=== PATIENT | female | born 1945 | race American Indian/Alaskan Native ===

== ENCOUNTER 2021-12-31 06:51 | Day surgery (SDC) | payer MEDICARE ==
[2021-12-31] MEDS ORDERED: SODIUM CHLORIDE 0.9% 500 ML 500 ML IV SCH (08:00)
[2021-12-31 08:27] LABS: Blood Urea Nitrogen 13 mg/dL (7-17)
[2021-12-31 08:34] LABS: Basophils % (Auto) 0.7 % (0.0-1.8); Hematocrit 39.8 % (30.3-42.9); Hemoglobin 13.5 gm/dl (10.1-14.3); INR 0.88 (0.87-1.13); Lymphocytes # (Auto) 1.1 K/mm3 (1.2-5.4); Mean Corpuscular HGB Conc 34 % (30-34); Mean Corpuscular Volume 92 fl (79-97); Monocytes # (Auto) 0.5 K/mm3 (0.0-0.8); Monocytes % (Auto) 12.3 % (0.0-7.3); Platelet Count 226 K/mm3 (140-440); Red Blood Count 4.31 M/mm3 (3.65-5.03); Red Cell Distribution Width 12.2 % (13.2-15.2)
[2021-12-31 08:41] LABS: Hemolysis Index 92
[2021-12-31] MEDS ORDERED: methylPREDNISolone Sod Succinate 125 MG/2 ML INJ IV NR (08:41)
[2021-12-31 08:42] LABS: BUN/Creatinine Ratio 19
[2021-12-31] MEDS ORDERED: FAMOTIDINE 20 MG/2 ML INJ IV ONE (08:43)
[2021-12-31] MEDS ORDERED: HEPARIN/NS 5000 UNIT/500ML 1,000 ML IR ONE (08:49)
[2021-12-31] MEDS ORDERED: HEPARIN 10,000 UNITS/10 ML VIAL ONE (08:50)
[2021-12-31] MEDS ORDERED: VERAPAMIL 5 MG/2 ML INJ ONE (08:50)
[2021-12-31] MEDS ORDERED: NITROGLYCERIN SYRINGE 3 ML ONE (08:50)
[2021-12-31] MEDS ORDERED: LIDOCAINE (2%) 20 MG/1 ML VIAL 20 ML MDV INFILTRATI ONE (08:50)
[2021-12-31] MEDS ORDERED: fentaNYL 100 MCG/2 ML INJ ONE (08:51)
[2021-12-31] MEDS ORDERED: MIDAZOLAM 2 MG/2 ML INJ ONE (08:51)
[2021-12-31] MEDS ORDERED: diphenhydrAMINE 50 MG/ML VIAL IV NR (09:00)
--- NOTE | 2021-12-31 09:04 | Electrocardiograph Report ---
[facility] Test Date: 2021-12-31 Test Time: 07:32:01 Pat Name: EVELYN CABALLERO Department: Room: Gender: F Performance Improvement Manager: GEOVANI : 1945 Requested By: HOMER MARIE Order Number: [id number] Reading MD: Homer Marie Measurements Intervals [place] Rate: 54 P: 30 TX: 277 QRS: -9 QRSD: 110 T: 101 QT: 383 QTc: 363 Interpretive Statements Sinus rhythm Prolonged TX interval LVH with secondary repolarization abnormality No previous ECG available for comparison Electronically Signed On 12-31-2021 9:04:43 EST by Homer Marie
--- NOTE | 2021-12-31 12:23 | Short Stay Summary ---
Short Stay Documentation Date of service: 12/31/21 - History H&P: obtained from office - Allergies and Medications Current Medications: Allergies aspirin Allergy (Verified 12/31/21 07:15) Unknown Palpitations contact metal agent Allergy (Verified 12/31/21 08:20) Vomiting Home Medications Medication Instructions Recorded Confirmed Last Taken Type Doxazosin Mesylate [Cardura Xl] 8 mg PO DAILY 12/31/21 12/31/21 12/30/21 History 1 TAB Eszopiclone [Lunesta] 1 mg PO QHS PRN 12/31/21 12/31/21 12/30/21 History 1 TAB Felodipine [Plendil] 10 mg PO DAILY 12/31/21 12/31/21 12/30/21 History 1 TAB Levothyroxine [Synthroid] 88 mcg PO QAM 12/31/21 12/31/21 12/30/21 History 1 TAB Magnesium Oxide [Magnesium] 400 mg PO DAILY 12/31/21 12/31/21 12/30/21 History 1 TAB Primidone [Mysoline] 250 mg PO QHS 12/31/21 12/31/21 12/30/21 History 1 TAB Valsartan [Diovan] 160 mg PO BID 12/31/21 12/31/21 12/30/21 History 2 TABS carvediloL [Coreg] 6.25 mg PO BID 12/31/21 12/31/21 12/30/21 History 2 TABS hydroCHLOROthiazide [HCTZ] 25 mg PO QDAY 12/31/21 12/31/21 12/30/21 History 1 TAB Active Medications Sodium Chloride (Nacl 0.9% 500 Ml) 500 mls @ 50 mls/hr IV DIRECT RADHA Stop: 12/31/21 17:59 Last Admin: 12/31/21 08:28 Dose: 50 mls/hr - Physical exam Integumentary: other (Dressings clean dry and intact no signs of bleeding or hematoma) - Brief post op/procedure progress note Date of procedure: 12/31/21 Pre-op diagnosis: Abnormal stress Post-op diagnosis: other (Normal coronary) Anesthesia: local Estimated blood loss: minimal - Hospital course Hospital course: Patient underwent cardiac cath due to abnormal stress test. No intervention indicated. Patient tolerated procedure well - Disposition Condition at discharge: Good Disposition: 01 HOME / SELF CARE / HOMELESS - Discharge Diagnoses (1) HTN (hypertension) Status: Chronic (2) First degree atrioventricular block Status: Chronic (3) Obesity Status: Chronic Short Stay Discharge Plan Activity: advance as tolerated Diet: low fat, low cholesterol, low salt Wound: keep clean and dry, per your surgeon's advice Follow up with: EVELYN MEAD [Other] - 7 Days JASIEL MERINO MD [Staff Physician] - 01/20/22 2:00 pm (Patient has a follow-up appointment on 01/20/2022 at 2:00 PM in our [place] office. Phone #[phone]) Forms: [employer] PCI D/C Instructions
--- NOTE | 2021-12-31 13:09 | Cardiac Catherization Report ---
DATE OF PROCEDURE: 12/31/2021 CARDIAC CATHETERIZATION REFERRING PHYSICIAN: Dr. Churchill INDICATIONS FOR PROCEDURE: The patient is a very pleasant 76-year-old female, history of hypertension, abnormal nuclear stress test, obesity, who had an abnormal stress test, had some sharp chest pain, referred for left heart catheterization. Risks, benefits and alternatives discussed at length prior to obtaining informed consent. DESCRIPTION OF PROCEDURE: The patient was brought to clinical laboratory scientist in a postabsorptive state, prepped and draped in sterile fashion. Hardy's test in right hand is normal. A 2 mL of 2% lidocaine used to anesthetize the right wrist. A standard 6-Greenlandic hydrophilic sheath used to cannulate the right radial artery via modified Seldinger technique. All exchanges performed to exchange a J-tip guidewire. JL3.5 catheter was used to engage the left main. No dampening or ventricularization. Cineangiography performed in all projections. JR4 catheter used to cross the aortic valve under fluoroscopic guidance. Left ventriculography performed in 30-degree COOPER and 30-degree SLOVAK projections via hand injections and catheter flushed. Manual pullback performed with continuous pressure monitoring. Catheter used to engage the right coronary. No dampening or ventricularization. Cineangiography performed in all projections. JR4 catheter used to cross the aortic valve under fluoroscopic guidance. Left ventriculography performed in 30-degree COOPER and 30-degree SLOVAK projections via hand injections and catheter flushed. Manual pullback performed with continuous pressure monitoring. Catheter was used to engage the right coronary. No dampening or ventricularization. Cineangiography performed in all projections. Next, catheter removed from the body over wire, sheath removed. Manual pressure used to achieve hemostasis. I directly supervised the administration of moderate sedation with fentanyl and Versed from 9:10 a.m. to 9:40 a.m. No immediate complications identified. DATA: Aortic pressure is 140/50, LV pressure is 140, LVEDP of 12 mmHg. Left ventriculography reveals normal systolic performance, estimated ejection fraction of 55-60%. No evidence of aortic stenosis. CORONARY ANATOMY: This is a right dominant system. Left main is short. No significant disease, bifurcates into left anterior descending, left circumflex. Left circumflex is a moderate sized vessel, courses AV groove. No significant disease. LAD is a moderate sized vessel, courses anterior interventricular groove, wraps around the apex. Scattered luminal irregularities, but no significant disease identified. The right coronary is a moderate sized vessel, courses AV groove, distally bifurcates into posterior and posterolateral branches. No discrete stenosis noted. The patient remained in sinus bradycardia throughout the procedure with heart rate of 55-65. No dysrhythmias noted. CONCLUSIONS: 1. No angiographic evidence of significant epicardial coronary artery disease in this right dominant system. 2. Normal left ventricular systolic performance, estimated ejection fraction of 55-60%. No evidence of aortic stenosis. 3. Normal LVEDP. The patient is clinically stable, chest pain free. Standard radial care. Results of procedure were explained in length to the patient and her daughter via telephone. Followup with Dr. Churchill in the office. Aggressive primary and secondary prevention measures discussed. TID: [id number] RECEIPT: [id number] ORACIO/IZAIAH
[2021-12-31 14:01] VITALS: BP 154/69
== END 2021-12-31 15:05 | disposition home or self-care (01) ==
LOC: CATHLABREC 06:51
PROVIDERS: ATTEND Internal Medicine
DX: R94.39 Abnormal result of other cardiovascular function study (principal); R07.9 Chest pain, unspecified; I10 Essential (primary) hypertension; E66.9 Obesity, unspecified; I44.0 Atrioventricular block, first degree; M19.90 Unspecified osteoarthritis, unspecified site; E03.9 Hypothyroidism, unspecified; Z68.37 Body mass index [BMI] 37.0-37.9, adult; Z88.6 Allergy status to analgesic agent; Z98.890 Other specified postprocedural states; Z79.899 Other long term (current) drug therapy; Z90.710 Acquired absence of both cervix and uterus; Z83.3 Family history of diabetes mellitus; Z80.0 Family history of malignant neoplasm of digestive organs; Z82.49 Family history of ischemic heart disease and other diseases of the circulatory system
CPT/HCPCS: 36415; 80048; 85025; 85610; 85730; 93005; 93458; 99156; 99157; C1894; J1200; J1644; J1815; J2250; J2930; J3010; J3490; J7040; 93010; 96374; 96375; Q9967